=== PATIENT | female | born 1975 | race Caucasian/White ===

== ENCOUNTER → 2016-05-27 | Outpatient (CLI) | payer OTHER | LOC: LAB.O 13:20 | PROVIDERS: ATTEND Obstetrics & Gynecology | DX: O12.03 Gestational edema, third trimester (principal); Z3A.30 30 weeks gestation of pregnancy ==

== ENCOUNTER → 2016-08-26 | Outpatient (CLI) | payer OTHER | END | disposition home or self-care (01) | LOC: LAB.O 11:23 | PROVIDERS: ATTEND Obstetrics & Gynecology | DX: Z30.2 Encounter for sterilization (principal) ==

== ENCOUNTER → 2016-12-25 | Outpatient (CLI) | payer OTHER ==
--- NOTE | 2016-12-26 11:25 | RAD ---
EXAM DESCRIPTION: Ankle,Left 3 Views CLINICAL HISTORY: 41 years,Female,FALL COMPARISON: None FINDINGS: The left ankle demonstrates avulsion fracture to the tip of the fibula minimally displaced. Ankle mortise and talar dome unremarkable. Soft tissues small amount soft tissue swelling about the lateral ankle. IMPRESSION: Small minimally to nondisplaced avulsion fracture of the tip of the distal left fibula. [] Electronically signed by: Wilfred Price MD 12/26/2016 11:24 AM CDT
== END ==
LOC: GMAM 20:11
PROVIDERS: ATTEND Family Medicine
DX: S82.492A Other fracture of shaft of left fibula, initial encounter for closed fracture (principal)

== ENCOUNTER → 2018-01-18 | Outpatient (CLI) | payer OTHER ==
--- NOTE | 2018-01-19 12:28 | MAM ---
EXAM DESCRIPTION: 3D Screening BILATERAL : Digital Mammography. CLINICAL HISTORY: 42 years Female SCREENING . No complaints. No personal history of breast cancer. Remote family history of breast cancer. Premenopausal. Childbirth. No HRT. Lifetime risk of developing breast cancer (Tyrer-Cuzick model) is 9.6 %. COMPARISON: None available.. No prior reports available. TECHNIQUE: Bilateral CC and MLO projection full-field images, Digital tomosynthesis mammographic technique. Bilateral digital 2-D full-field MLO images. CAD not utilized. FINDINGS: The breast parenchymal density pattern is: Heterogeneously dense breast tissue, which may obscure small masses. No skin thickening or nipple retraction. Approximately 1 cm mass density in the inferior mid right breast at 800 clock position approximately 7 cm from the nipple. Most likely intramammary lymph node fibroadenoma or cyst. Similar density in the posterior right breast abutting the chest wall. Scattered microcalcifications associated with the densest tissue in bilateral breasts. Fewer microcalcifications in the right breast. IMPRESSION: BI-RADS CATEGORY: 0 - INCOMPLETE- Need prior mammograms for comparison. FOLLOW-UP: Comparison with prior examination(s) when available. Written communication explaining the results and follow-up will be mailed to the patient and referring care provider. Electronically signed by: David Valdez MD 01/19/2018 12:27 PM CDT
== END ==
LOC: MAMMO 13:30
PROVIDERS: ATTEND Family Medicine
DX: Z12.31 Encounter for screening mammogram for malignant neoplasm of breast (principal)

== ENCOUNTER → 2018-08-27 | Outpatient (CLI) | payer OTHER ==
--- NOTE | 2018-08-27 09:06 | RAD ---
EXAM DESCRIPTION: Wrist,Right 3 Views CLINICAL HISTORY: 43 years Female, M25.531 COMPARISON: None. FINDINGS: Three views of the right wrist show no acute fracture or malalignment. No joint space narrowing. No focal bone lesion or ulnar variance. Vascular calcifications. IMPRESSION: Vascular calcifications, otherwise unremarkable exam. Electronically signed by: Ray Khan MD 08/27/2018 9:02 AM CDT
== END ==
LOC: RAD 08:05
PROVIDERS: ATTEND Orthopaedic Surgery
DX: I77.89 Other specified disorders of arteries and arterioles (principal); M25.531 Pain in right wrist

== ENCOUNTER 2018-11-13 15:48 | Emergency (ER) | payer OTHER ==
--- NOTE | 2018-11-13 16:48 | RAD ---
EXAM DESCRIPTION: Chest,1 View CLINICAL HISTORY: 43 years Female, sob, tachycardia, hyperglycemia COMPARISON: None. TECHNIQUE: AP portable chest. FINDINGS: Heart size is normal with normal pulmonary vascularity. No consolidating infiltrate. No pulmonary mass or worrisome nodule. No pneumothorax or pleural effusion. Bones are unremarkable. IMPRESSION: No acute process is identified in the chest. Electronically signed by: Grover Dutta MD 11/13/2018 4:45 PM CDT
[2018-11-13] MEDS ORDERED: cefTRIAXone SODIUM 1 GM in SODIUM CHL 0.9% 50ML MIN-BAG+ 50 ML IVPB ONE (17:23)
[2018-11-13] MEDS ORDERED: CIPROFLOXACIN 500 MG TAB PO ONE (17:23)
[2018-11-13] MEDS ORDERED: SODIUM CHLORIDE 0.9% 1000ML 1,000 ML IVS ONE (17:23)
[2018-11-13] MEDS ORDERED: cefTRIAXone SODIUM 1 GM VIAL ONE (17:29)
[2018-11-13] MEDS ORDERED: SODIUM CHL 0.9% 50ML MIN-BAG+ 50 ML IVPB ONE (17:30)
[2018-11-13 19:09] VITALS: O2SAT 99
--- NOTE | 2018-11-13 19:57 | ED.PDOC ---
History of Present Illness - General Chief Complaint: Cardiovascular Problem Stated Complaint: ELEVATED HR AND TIGHNESS IN CHEST Time Seen by Provider: 11/13/18 15:53 Source: patient Exam Limitations: no limitations - History of Present Illness Initial Comments: The patient is a 43-year-old female presenting to emergency room secondary to waking up at 2:30 this afternoon and feeling a little bit shaky with very mild chest discomfort and very mild shortness of breath. The patient is a insulin-dependent diabetic and these are symptoms that she gets when her blood sugar rises. When she initially checked it was in the low 100s however over the next hour or 2 it has risen to approximately 300. She is not having chest discomfort but does have very mild shortness of breath here. No hypoxia. No syncope or near syncope. She is pleasant and cooperative. She reports that she was very agitated for multiple other reasons just prior to the event. She reports that her heart rate did go up to the 140s. Heart rates were in the 100- 125 range here and in a sinus rhythm at her arrival. Timing/Duration: 1 hour Severity: moderate Improving Factors: nothing Worsening Factors: nothing Associated Symptoms: shortness of breath Allergies/Adverse Reactions: Allergies Penicillins Allergy (Verified 11/13/18 16:01) Home Medications: Ambulatory Orders Ciprofloxacin [Cipro] 500 mg PO BID #10 tab 11/13/18 Review of Systems - Review of Systems Constitutional: States: no symptoms reported EENTM: States: no symptoms reported Respiratory: States: short of breath Cardiology: States: chest pain Gastrointestinal/Abdominal: States: no symptoms reported Genitourinary: States: no symptoms reported Musculoskeletal: States: no symptoms reported Skin: States: no symptoms reported Neurological: States: anxiety Endocrine: States: no symptoms reported All other Systems: No Change from Baseline Past Medical History (General) - Patient Medical History Hx of COPD: No Hx Cardiac Disorders: No Hx Hypertension: No Hx Thyroid Disease: Yes Hx Diabetes: Yes Hx Cancer: No Hx Hepatitis C: No - Vaccination History Hx Tetanus, Diphtheria Vaccination: Yes Hx Influenza Vaccination: Yes Hx Pneumococcal Vaccination: No Immunizations Up to Date: No - Social History Hx Tobacco Use: No Hx Alcohol Use: No Hx Substance Use: No Hx Substance Use Treatment: No Hx Depression: No - Female History Patient is a Female of Child Bearing Age (10 -59 yrs old): Yes - Triage Comment ED Triage Comment: DEPGeno HOWARD Family Medical History - Family History Mother Living Status: Still Living Hx Family Hypertension: Yes Hx Family Cancer: Yes Physical Exam - Physical Exam General Appearance: Alert, Anxious, No apparent distress Eye Exam: bilateral normal Ears, Nose, Throat: hearing grossly normal, normal ENT inspection, normal pharynx Neck: full range of motion Respiratory: lungs clear, normal breath sounds, no respiratory distress, no accessory muscle use Cardiovascular/Chest: normal peripheral pulses, no edema, tachycardia - sinus tachycardia Peripheral Pulses: dorsalis pedis,right: 2+, dorsalis pedis,left: 2+ Gastrointestinal/Abdominal: non tender, soft Rectal Exam: deferred Back Exam: normal inspection Extremity: non-tender, no pedal edema Neurologic: group marketing vp II-XII nml as tested, alert, normal mood/affect, oriented x 3 Skin Exam: normal color Comments: Vital Signs - 24 hr 11/13/18 11/13/18 11/13/18 15:50 16:08 16:23 Temperature 98.3 F Pulse Rate [ 110 H 101 H 105 H MONITOR] Respiratory 18 18 Rate Blood Pressure 120/78 89/60 [RA] O2 Sat by Pulse 99 98 Oximetry 11/13/18 11/13/18 11/13/18 17:30 18:30 19:00 Temperature 98.3 F Pulse Rate [ 81 80 86 MONITOR] Respiratory 18 18 18 Rate Blood Pressure 136/59 159/85 131/72 [RA] O2 Sat by Pulse 98 95 99 Oximetry 11/13/18 19:13 Temperature Pulse Rate [ 82 MONITOR] Respiratory 14 Rate Blood Pressure 131/72 [RA] O2 Sat by Pulse 99 Oximetry Progress - Progress Progress: 11/13/18 19:59 the patient's a 43-year-old female presenting with sinus tachycardia along with symptoms of mild shortness of breath and mild chest discomfort. Given her history of symptoms, this is likely due to her rising blood sugar. Trigger for this is not entirely certain. Blood sugars are improving and symptoms are resolving. Repeat cardiac enzymes are negative. EKG and chest x- ray are reassuring. She does have a small urinary tract infection that is going to be treated with 5 days of oral ciprofloxacin. She needs to keep herself well hydrated. ER warnings were given for any worsening. Keep routine follow- up with primary care doctor. - Results/Orders Results/Orders: chest x-ray is within normal limits. EKG shows sinus tachycardia at [address] segment or T-wave changes indicative of ischemia. Normal axis. Normal R-wave progression. Normal QT interval.. Laboratory Tests 11/13/18 11/13/18 11/13/18 16:10 16:10 16:10 WBC 9.3 RBC 4.58 Hgb 14.5 Hct 42.4 MCV 92.7 MCH 31.6 H MCHC 34.1 RDW 12.7 Plt Count 312 MPV 8.5 Absolute Neuts (auto) 7.20 H Absolute Lymphs (auto) 1.50 Absolute Monos (auto) 0.50 Absolute Eos (auto) 0.10 Absolute Basos (auto) 0.10 Neutrophils % 76.8 Lymphocytes % 16.2 L Monocytes % 5.3 Eosinophils % 0.7 L Basophils % 1.0 PT 10.2 INR 1.02 PTT (SP) 22.1 D-Dimer, Quantitative 0.25 Sodium 135 Potassium 4.0 Chloride 104 Carbon Dioxide 19 L Anion Gap 16.0 BUN 14 Creatinine 0.89 BUN/Creatinine Ratio 15.7 POC Glucose Random Glucose 266 H Serum Osmolality 279.9 Calcium 8.8 Magnesium 1.8 Total Bilirubin 0.7 AST 17 ALT 12 Alkaline Phosphatase 51 Creatine Kinase 67 CK-MB (CK-2) 1.7 CK-MB (CK-2) % Not Reportable Troponin I < 0.02 B-Natriuretic Peptide 7.7 Serum Total Protein 7.1 Albumin 3.8 Globulin 3.3 Albumin/Globulin Ratio 1.2 TSH 1.67 Urine Color Urine Appearance Urine pH Ur Specific [place] Urine Protein Urine Glucose (UA) Urine Ketones Urine Blood Urine Nitrite Urine Bilirubin Urine Urobilinogen Ur Leukocyte Esterase Urine RBC Urine WBC Ur Epithelial Cells Urine Bacteria Hyaline Casts Urine HCG, Qual 11/13/18 11/13/18 11/13/18 16:49 16:49 18:42 WBC RBC Hgb Hct MCV MCH MCHC RDW Plt Count MPV Absolute Neuts (auto) Absolute Lymphs (auto) Absolute Monos (auto) Absolute Eos (auto) Absolute Basos (auto) Neutrophils % Lymphocytes % Monocytes % Eosinophils % Basophils % PT INR PTT (SP) D-Dimer, Quantitative Sodium Potassium Chloride Carbon Dioxide Anion Gap BUN Creatinine BUN/Creatinine Ratio POC Glucose Random Glucose Serum Osmolality Calcium Magnesium Total Bilirubin AST ALT Alkaline Phosphatase Creatine Kinase 66 CK-MB (CK-2) 1.8 CK-MB (CK-2) % Not Reportable Troponin I < 0.02 B-Natriuretic Peptide Serum Total Protein Albumin Globulin Albumin/Globulin Ratio TSH Urine Color Yellow Urine Appearance Cloudy Urine pH 5.5 Ur Specific [place] >= 1.030 Urine Protein 100 H Urine Glucose (UA) 100 H Urine Ketones 40 H Urine Blood Small H Urine Nitrite Negative Urine Bilirubin Small H Urine Urobilinogen 1.0 Ur Leukocyte Esterase Small H Urine RBC 3-5 H Urine WBC 5-10 H Ur Epithelial Cells 5-10 Urine Bacteria 2+ H Hyaline Casts 0-1 Urine HCG, Qual Negative 11/13/18 18:54 WBC RBC Hgb Hct MCV MCH MCHC RDW Plt Count MPV Absolute Neuts (auto) Absolute Lymphs (auto) Absolute Monos (auto) Absolute Eos (auto) Absolute Basos (auto) Neutrophils % Lymphocytes % Monocytes % Eosinophils % Basophils % PT INR PTT (SP) D-Dimer, Quantitative Sodium Potassium Chloride Carbon Dioxide Anion Gap BUN Creatinine BUN/Creatinine Ratio POC Glucose 184 H Random Glucose Serum Osmolality Calcium Magnesium Total Bilirubin AST ALT Alkaline Phosphatase Creatine Kinase CK-MB (CK-2) CK-MB (CK-2) % Troponin I B-Natriuretic Peptide Serum Total Protein Albumin Globulin Albumin/Globulin Ratio TSH Urine Color Urine Appearance Urine pH Ur Specific [place] Urine Protein Urine Glucose (UA) Urine Ketones Urine Blood Urine Nitrite Urine Bilirubin Urine Urobilinogen Ur Leukocyte Esterase Urine RBC Urine WBC Ur Epithelial Cells Urine Bacteria Hyaline Casts Urine HCG, Qual Departure - Departure Clinical Impression: Hyperglycemia due to type 1 diabetes mellitus, Sinus tachycardia, Cystitis Disposition: Discharge to Home or Self Care Condition: Fair Departure Forms: ED Discharge - Pt. Copy, Patient Portal Self Enrollment Instructions: Hyperglycemia, Adult (DC), Sinus Tachycardia (DC), Acute Cystitis (DC) Diet: diabetic diet Activity: increase activity as tolerated Referrals: Wilfred Dacosta III, MD [Primary Care Provider] - 1-2 Weeks Prescriptions: Ciprofloxacin [Cipro] 500 mg PO BID #10 tab Home Medications: Ambulatory Orders Ciprofloxacin [Cipro] 500 mg PO BID #10 tab 11/13/18 Additional Instructions: the patient's a 43-year-old female presenting with sinus tachycardia along with symptoms of mild shortness of breath and mild chest discomfort. Given her history of symptoms, this is likely due to her rising blood sugar. Trigger for this is not entirely certain. Blood sugars are improving and symptoms are resolving. Repeat cardiac enzymes are negative. EKG and chest x- ray are reassuring. She does have a small urinary tract infection that is going to be treated with 5 days of oral ciprofloxacin. She needs to keep herself well hydrated. ER warnings were given for any worsening. Keep routine follow- up with primary care doctor.
[2018-11-13 20:16] VITALS: BP 121/70; TEMP 97.8
== END 2018-11-13 20:23 | disposition home or self-care (01) ==
LOC: ER 15:48
DX: E10.65 Type 1 diabetes mellitus with hyperglycemia (principal); R00.0 Tachycardia, unspecified; N30.90 Cystitis, unspecified without hematuria; R07.89 Other chest pain; R06.02 Shortness of breath; E07.9 Disorder of thyroid, unspecified; Z88.0 Allergy status to penicillin; Z79.4 Long term (current) use of insulin
CPT/HCPCS: 36415; 71045; 80053; 81001; 81025; 82550; 82553; 82948; 83735; 83880; 84443; 84484; 85025; 85379; 85610; 85730; 87086; 93005; J0696; J7030; J7050

== ENCOUNTER → 2019-06-24 | Outpatient (CLI) | payer OTHER ==
--- NOTE | 2019-06-26 09:51 | MRI ---
EXAM DESCRIPTION: Lumbar Spine w/o Contrast : Magnetic Resonance Imaging. CLINICAL HISTORY: LOW BACK PAIN COMPARISON: LUMBAR TECHNIQUE: Multiplanar, multiple standard sequences, non contrast MRI, lumbar spine.. Technically difficult study due to patient motion degrading images on several sequences FINDINGS: L5-S1: The disc is well visualized on axial T2 series 501, image 3. Disc desiccation and disc space loss. Large posterior herniation 10 mm from the disc space and 15 mm transverse measurement. Inferior extrusion 7.5 mm impressing on the thecal sac, and the descending left S1 nerve in the subarticular recess. Schmorl's nodes on the central endplates, and mild endplate reactive changes to the right.. Facet joints and posterior flavum ligaments (posterior elements are unremarkable. Moderate bilateral foraminal narrowing, right more than left. L4-L5: Disc desiccation and disc space loss. Bilateral hyperintense T2 weighted annular fissures in posterior broad-based protrusion 5 mm posterior and 16 mm transverse. Disc migrates slightly inferior to the disc space impressing on the bilateral subarticular recesses and the descending L5 nerves. AP canal diameter 8 mm. Minimal degenerative hypertrophy of the bilateral posterior elements. Bilateral mild foraminal narrowing. Normal signal in the L3-4 disc and disc space maintained. Minimal hypertrophy of the posterior elements is degenerative. AP canal diameter 13 mm. Bilateral foramina are patent. L2-L3: Normal signal in the disc and disc space is maintained. Minimal degenerative hypertrophy of the posterior elements. AP canal diameter 12 mm. Bilateral foramina are patent. L1-L2: Disc space maintained with minimal desiccation of the disc. Minimal region of moderate spondylosis anterior L2 endplate. Degenerative hypertrophy of the posterior elements. AP canal diameter 13 mm. Bilateral foramina are patent. T12-L1: Normal signal in the disc with disc space maintained. Mild hypertrophy of the posterior elements. Bilateral foramina are patent. Conus terminates at this level. No significant scoliosis Paravertebral soft tissues negative. Distal cord normal signal and caliber. Normal marrow signal in the remaining vertebral bodies and the posterior elements. Vertebral bodies are not compressed at any level. IMPRESSION: 1. Large disc herniation L5-S1 in the midline into the left of midline with inferior extrusion and marked central canal stenosis and stenosis left subarticular recess and impingement of the left S1 nerve. 2. Disc herniation L4-L5 is broad-based with annular fissure bilaterally. Mild to moderate central canal stenosis abutting the bilateral L5 nerves in the subarticular recesses. 3. Disc bulging and degenerative hypertrophy of the posterior flavum ligaments and facet joints contributing to canal narrowing at other levels. Electronically signed by: David Valdez MD 06/26/2019 9:50 AM [facility]
== END ==
LOC: MRI 12:50
PROVIDERS: ATTEND Family Medicine
DX: M51.26 Other intervertebral disc displacement, lumbar region (principal); M51.27 Other intervertebral disc displacement, lumbosacral region; M51.86 Other intervertebral disc disorders, lumbar region; M24.28 Disorder of ligament, vertebrae; M48.8X6 Other specified spondylopathies, lumbar region; M48.061 Spinal stenosis, lumbar region without neurogenic claudication; M48.07 Spinal stenosis, lumbosacral region